=== PATIENT | male | born 1955 | race Caucasian/White ===

== ENCOUNTER → 2019-11-10 08:38 | Outpatient (CLI) | payer OTHER, SELFPAY ==
[2019-11-10 10:26] LABS: BUN Creatinine Ratio 15.6 (6-22); Blood Urea Nitrogen 14 mg/dL (9-20); Estimated Glomerular Filt Rate > 60.0 mL/min (>60)
== END ==
PROVIDERS: PCP Family Medicine; Referring Provider Specialist; Visit Provider Specialist
DX: Z01.818 Encounter for other preprocedural examination (principal)
CPT/HCPCS: 36415; 82565; 84520

== ENCOUNTER → 2019-11-12 12:09 | Outpatient (CLI) | payer OTHER, SELFPAY ==
--- NOTE | 2019-11-12 12:11 | DI.CT.S_ITS ---
PROCEDURE: CT PELVIS W CON INDICATIONS: Chronic pain in left inguinal hernia region post repair TECHNIQUE: After the administration of oral contrast and intravenous contrast, 5 mm thick sections acquired from the iliac crests to the symphysis. 5 mm thick coronal and sagittal reformats were acquired. For radiation dose reduction, the following was used: automated exposure control, adjustment of mA and/or kV according to patient size. COMPARISON: None. FINDINGS: Image quality: Excellent. Peritoneum and bowel: Contrast enhanced bowel loops demonstrate normal wall thickness and caliber. No free fluid or air. Note is made of asymmetric bowel within the lower pelvis anteriorly with greater large and small bowel loops on the right than the left. Low left inguinal canal internal os shows characteristic soft tissue change of herniorrhaphy, best seen centered on series 2, image 27. No recurrent hernia in this area is identified. Genitourinary: Bladder wall thickness is normal. Nodes and vessels: No iliac, pelvic, or inguinal adenopathy. Iliac vessels demonstrate normal size and enhancement. Bones: No suspicious bony lesions. Miscellaneous: No inguinal hernias. IMPRESSION: Expected postoperative change of left herniorrhaphy with asymmetric presence of large and small bowel loops in the right hemipelvis than in the left anteriorly. There is no sign of internal hernia, or bowel inflammation or mass lesion in this region. Dictated by: Pete Yates M.D. on 11/12/2019 at 15:43 Approved by: Pete Yates M.D. on 11/12/2019 at 15:53
== END ==
PROVIDERS: PCP Family Medicine; Referring Provider Specialist; Visit Provider Specialist
DX: R10.32 Left lower quadrant pain (principal); M79.2 Neuralgia and neuritis, unspecified; G89.29 Other chronic pain; Z98.890 Other specified postprocedural states
CPT/HCPCS: 72193

== ENCOUNTER 2021-02-22 14:40 | Emergency (ER) | payer OTHER, SELFPAY ==
[2021-02-22 14:39] VITALS: BP 158/87; PULSE 77; RESP 20; TEMP 36.6; O2SAT 97
--- NOTE | 2021-02-22 14:51 | DI.CT.S_ITS ---
PROCEDURE: CT KIDNEY URETER BLADDER (KUB) INDICATIONS: left flank pain TECHNIQUE: Axial sections were acquired from the lung bases to the pubic symphysis. Coronal and sagittal reformats were performed. For radiation dose reduction, the following was used: automated exposure control, adjustment of mA and/or kV according to patient size. COMPARISON: [facility], CT, CT PELVIS W CON, 11/12/2019, 13:22. FINDINGS: Image quality: Excellent. Lung bases: There is minimal dependent atelectasis. There are postsurgical changes at the gastroesophageal junction. Heart: No significant findings. URINARY: Right Kidney: No stones or hydronephrosis. Right Ureter: No hydroureter. Left Kidney: There is a punctate nonobstructing stone within the left kidney. No hydronephrosis. Left Ureter: No hydroureter. Bladder: The urinary bladder is partially distended but there is suggestion of mild concentric wall thickening. No calcified bladder stones. There is heterogeneous enlargement of the prostate. ABDOMEN: Liver: Unremarkable. Gallbladder: Multiple calcified gallstones are demonstrated in the gallbladder fundus. No associated gallbladder wall thickening or pericholecystic fat stranding. Biliary ducts: Unremarkable. Pancreas: Unremarkable. Spleen: Unremarkable. Adrenal Glands: Unremarkable. Stomach and Bowel: Stomach, small bowel loops, and colon are normal in caliber and wall thickness. No evidence of appendicitis. There is colonic diverticulosis without acute diverticulitis. Peritoneum: No abnormal intraperitoneal fluid. No free air. Ventral Wall: No hernia. Abdominal Nodes: No enlarged retroperitoneal or mesenteric lymph nodes. Vessels: Aorta and inferior vena cava are normal in size. PELVIS: Pelvic Organs: Unremarkable. Pelvic Nodes: Unremarkable. Miscellaneous: There is soft tissue fullness in the left inguinal fossa redemonstrated consistent with sequelae of prior inguinal hernia repair. No evidence of recurrent inguinal hernias. Bones: There is moderate multilevel degenerative disc disease throughout the lumbar spine. IMPRESSION: 1. Punctate nonobstructing left renal stone. No evidence of obstructive uropathy. 2. Colonic diverticulosis without acute diverticulitis. 3. Mild concentric bladder wall thickening. The findings may reflect a cystitis or possible sequelae of bladder outlet obstruction secondary to enlargement of the prostate. 4. Soft tissue fullness redemonstrated in the left inguinal fossa likely related to prior inguinal hernia repair. No evidence of recurrent hernia. Dictated by: David Echevarria M.D. on 02/22/2021 at 14:18 Approved by: David Echevarria M.D. on 02/22/2021 at 14:22
[2021-02-22 15:02] LABS: Add Manual Diff / Slide Review NO; Basophils Absolute Auto 100 /uL (0-100); Basophils Percent Auto 0.5 % (0-2); Eosinophils Absolute Auto 0 /uL (0-450); Eosinophils Percent Auto 0.3 % (2-4); Hematocrit 39.7 % (41-53); Hemoglobin 13.7 g/dL (13.5-17.5); Lymphocytes Absolute Auto 1700 /uL (1100-4500); Lymphocytes Percent Auto 14.9 % (25-40); Mean Corpuscular HGB Conc 34.5 % (30-36); Mean Corpuscular Hemoglobin 32.1 PG (26-34); Monocytes Absolute Auto 800 /uL (0-900); Neutrophils Absolute Auto 9000 /uL (1500-7000); Neutrophils Percent Auto 77.3 % (50-75); Platelet Count 287 X10^3/uL (150-400); Red Blood Cell Count 4.26 X10^6/uL (4.5-5.9); Red Cell Distribution Width 13.1 % (11.6-14.8); White Blood Cell Count 11.6 X10^3/uL (4.5-11.0)
[2021-02-22] MEDS: SODIUM CHLORIDE 0.9% 1,000 ML 1000 ML IV (15:06)
[2021-02-22 15:07] LABS: Alanine Aminotransferase 11 IU/L (<50); Albumin 4.3 g/dL (3.5-5.0); Albumin Globulin Ratio 1.7 (1.0-2.8); Alkaline Phosphatase 82 U/L (38-126); Aspartate Aminotransferase 18 IU/L (17-59); BUN Creatinine Ratio 21.6 (6-22); Bilirubin Total 0.7 mg/dL (0.2-1.3); Blood Urea Nitrogen 19 mg/dL (9-20); Calcium 9.1 mg/dL (8.4-10.2); Carbon Dioxide 27 mmol/L (22-32); Chloride 104 mmol/L (98-107); Estimated Glomerular Filt Rate > 60.0 mL/min (>60); Globulin 2.5 g/dL (1.7-4.1); Glucose 109 mg/dL (80-110); HEMOLYSIS < 15 (0-50); Sodium 135 mmol/L (137-145); Total Protein 6.8 g/dL (6.3-8.2)
[2021-02-22] MEDS: KETOROLAC 30 MG/ML VIAL 15 MG IV (15:07)
--- NOTE | 2021-02-22 15:30 | ED_ITS ---
HPI - General Adult General Chief complaint: Urogenital-Male Stated complaint: Possible Kidney Stones Time Seen by Provider: 02/22/21 14:42 History of Present Illness HPI narrative: 65-year-old gentleman with a history of BPH and prior kidney stones requiring lithotripsy. 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 He presents with left-sided flank pain for the last 24 hours that is getting worse. It is radiating into the left lower quadrant and down into his testicle and feels like similar kidney stones. He currently is having frequency but no dysuria when he does void. He describes no fevers, cough, chills. Has not been having any constipation or diarrhea. He has been nauseated but has not actually vomited. He describes no headache, palpitations, chest pain or dyspnea. Related Data Home Medications Medication Instructions Recorded Confirmed tamsulosin 0.4 mg capsule 0.4 mg PO DAILY 10/10/19 11/15/19 Previous Rx's Medication Instructions Recorded gabapentin 300 mg capsule 300 mg PO TID #90 cap 10/24/19 amitriptyline 10 mg tablet See Rx Instructions .ROUTE 11/08/19 .COMPLEX #30 tab hydrocodone 5 mg-acetaminophen 325 1 tab PO Q6HR PRN #10 tab 02/22/21 mg tablet Allergies Allergy/AdvReac Type Severity Reaction Status Date / Time No Known Drug Allergies Allergy Unverified 11/15/19 13:17 Review of Systems Review of Systems Narrative: Remainder of complete review of systems is otherwise unremarkable except for that included in the HPI. Patient History Medical History (Updated 02/22/21 @ 15:46 by Katiuska Loja MD) History of stomach ulcers Nephrolithiasis Surgical History Status post left inguinal hernia repair Family History Mother Cancer Social History marital status: unknown household members: friend(s) occupational status: employed Smoking Status: Never smoker alcohol intake: current substance use type: marijuana Smoking Status: Never smoker Exam Narrative Exam Narrative: General: Healthy appearing, in pain but Able to give a complete and coherent history. Well-nourished well-developed HEENT: Moist mucous membranes, normal sclera with reactive pupils, Neck: No JVD, supple Respiratory: Lungs are clear to auscultation, no wheezing no rales no rhonchi. Full and symmetrical air movement Cardiac: Regular rate and rhythm no murmurs no bruits Abdomen: Soft, nontender, good bowel tones, left flank pain Skin: Warm and dry, no rashes Neurologic: Grossly neurologically intact with no obvious asymmetries or abnormalities Extremities: No trauma, well perfused Psych: Cooperative, appropriate insight and affect Initial Vital Signs Initial Vital Signs: Vital Signs Temperature 98 F 02/22/21 14:39 Pulse Rate 77 02/22/21 14:39 Respiratory Rate 20 02/22/21 14:39 Blood Pressure 158/87 H 02/22/21 14:39 Pulse Oximetry 97 02/22/21 14:39 Course Orders Ordered: ED Orders 02/22/21 14:51 CT kidney ureter bladder (KUB) Stat 02/22/21 14:55 Complete Blood Count AUTO DIFF Stat Comprehensive Metabolic Panel Stat 02/22/21 15:14 Urinalysis and Microscopic Stat Hydromorphone HCl (Hydromorphone 0.5 Mg Inj) 0.5 mg IV Q15MIN PRN PRN Reason: Pain, Sodium Chloride (Normal Saline 0.9%) 1,000 mls @ 1,000 mls/hr IV BOLUS ONE Stop: 02/22/21 15:49 Last Admin: 02/22/21 15:06 Dose: 1,000 mls/hr Documented by: GERMAN Discontinued Medications Ketorolac Tromethamine (Ketorolac 30 Mg/Ml Vial) 15 mg IV NOW ONE Stop: 02/22/21 14:51 Last Admin: 02/22/21 15:07 Dose: 15 mg Documented by: GERMAN Vital Signs Vital signs: Vital Signs - 8 hr 02/22/21 14:39 Temperature 98 F Pulse Rate 77 Respiratory Rate 20 Blood Pressure 158/87 H Pulse Oximetry 97 Medical Decision Making Lab Data Result diagrams: 02/22/21 14:55 02/22/21 14:55 Labs: Lab Results 02/22/21 02/22/21 Range/Units 14:55 14:55 WBC 11.6 H (4.5-11.0) X10^3/uL RBC 4.26 L (4.5-5.9) X10^6/uL Hgb 13.7 (13.5-17.5) g/dL Hct 39.7 L (41-53) % MCV 93.0 (80-100) fL MCH 32.1 (26-34) PG MCHC 34.5 (30-36) % RDW 13.1 (11.6-14.8) % Plt Count 287 (150-400) X10^3/uL Neut % (Auto) 77.3 H (50-75) % Lymph % (Auto) 14.9 L (25-40) % [place] % (Auto) 7.0 (3-14) % Eos % (Auto) 0.3 L (2-4) % Baso % (Auto) 0.5 (0-2) % Neut # (Auto) 9000 H (8659-3547) /uL Lymph # (Auto) 1700 (8218-2015) /uL [place] # (Auto) 800 (0-900) /uL Eos # (Auto) 0 (0-450) /uL Baso # (Auto) 100 (0-100) /uL Sodium 135 L (137-145) mmol/L Potassium 4.0 (3.4-5.1) mmol/L Chloride 104 (98-107) mmol/L Carbon Dioxide 27 (22-32) mmol/L BUN 19 (9-20) mg/dL Creatinine 0.88 (0.66-1.25) mg/dL Estimated GFR > 60.0 (>60) mL/min BUN/Creatinine Ratio 21.6 (6-22) Glucose 109 (80-110) mg/dL Calcium 9.1 (8.4-10.2) mg/dL Total Bilirubin 0.7 (0.2-1.3) mg/dL AST 18 (17-59) IU/L ALT 11 (<50) IU/L Alkaline Phosphatase 82 (38-126) U/L Total Protein 6.8 (6.3-8.2) g/dL Albumin 4.3 (3.5-5.0) g/dL Globulin 2.5 (1.7-4.1) g/dL Albumin/Globulin Ratio 1.7 (1.0-2.8) Imaging Data CT scan - abdomen/pelvis: Radiologist's Impression: FINDINGS:? Image quality:? Excellent.? ? Lung bases:? There is minimal dependent atelectasis.? There are postsurgical changes at the gastroesophageal junction.? Heart:? No significant findings. ? URINARY: Right Kidney: ? No stones or hydronephrosis.? Right Ureter:? No hydroureter.? ? Left Kidney:? There is a punctate nonobstructing stone within the left kidney.? No hydronephrosis. Left Ureter:? No hydroureter.? ? Bladder:? The urinary bladder is partially distended but there is suggestion of mild concentric wall thickening.? No calcified bladder stones.? There is heterogeneous enlargement of the prostate. ? ABDOMEN: Liver:? Unremarkable.? ? Gallbladder:? Multiple calcified gallstones are demonstrated in the gallbladder fundus.? No associated gallbladder wall thickening or pericholecystic fat stranding. Biliary ducts:? Unremarkable.? ? Pancreas:? Unremarkable.? ? Spleen:? Unremarkable.? ? Adrenal Glands:? Unremarkable.? ? ? Stomach and Bowel:? Stomach, small bowel loops, and colon are normal in caliber and wall thickness.? No evidence of appendicitis.? There is colonic diverticulosis without acute diverticulitis. Peritoneum:? No abnormal intraperitoneal fluid.? No free air.? ? Ventral Wall: ? No hernia.? Abdominal Nodes:? No enlarged retroperitoneal or mesenteric lymph nodes.? Vessels:? Aorta and inferior vena cava are normal in size.? ? PELVIS: Pelvic Organs:? Unremarkable.? ? Pelvic Nodes: Unremarkable. Miscellaneous:? There is soft tissue fullness in the left inguinal fossa redemonstrated consistent with sequelae of prior inguinal hernia repair.? No evidence of recurrent inguinal hernias. ? Bones:? There is moderate multilevel degenerative disc disease throughout the lumbar spine. ? IMPRESSION:? ? 1. Punctate nonobstructing left renal stone.? No evidence of obstructive uropathy. ? 2. Colonic diverticulosis without acute diverticulitis. ? 3. Mild concentric bladder wall thickening.? The findings may reflect a cystitis or possible sequelae of bladder outlet obstruction secondary to enlargement of the prostate. ? 4. Soft tissue fullness redemonstrated in the left inguinal fossa likely related to prior inguinal hernia repair.? No evidence of recurrent hernia.? ? ? Dictated by: David Echevarria M.D. on 02/22/2021 at 14:18? ?? MDM Narrative Medical decision making narrative: 65-year-old gentleman with 24 hours of left flank pain the setting of prior kidney stones. Does report severe pain with a flush of nausea and heat as he was straining on the toilet it was this episode that caused him to call 911. CT scan does not show a kidney stone or any hydronephrosis. There is no evidence of appendicitis or diverticulitis. No other significant abnormalities suggested of alternate diagnoses on CT scan. Labs are equally reassuring. He is significantly improved after Toradol in the emergency department. At this point I suspect that he had a stone and passed it with that significant parasympathetic flush just prior to calling the ambulance. Will have him continue with his Flomax as previously prescribed. Will give him 10 Percocet to have at home should he have recurrent pain and have him continue to use ibuprofen and Tylenol as needed. He will follow-up with his primary care physician and return to the ER if symptoms worsen. Safe for home discharge Discharge Plan Departure Patient Disposition: Home Clinical Impression: Left flank pain Instructions: DI for Kidney Stones Activity Restrictions/Additional Instructions: Thank you for coming in today Your lab work is very reassuring. There is no evidence of infection and there is no obvious kidney stone seen on the CT scan currently. With your description of symptoms I am wondering if you actually had a stone and passed it with those severe symptoms appreciated just prior to calling 911. You do have a mild amount of stool however it is all on the right side of your colon and that should explain left-sided flank pain. I would encourage you to use stool softeners as you did take narcotics yesterday and were given additional narcotics today. Using 400 mg of ibuprofen (2 [id number] pills) and 1 Tylenol every 6 hours can be very helpful in controlling pain. For severe pain you can use 400 mg of ibuprofen and 1 Percocet. Please continue all other medications as prescribed If you have worsening symptoms, please return to the ER. Prescriptions: New hydrocodone-acetaminophen 5-325 mg tablet 1 tab PO Q6HR PRN (Reason: pain) Qty: 10 0RF No Action amitriptyline 10 mg tablet See Rx Instructions .ROUTE .COMPLEX Qty: 30 2RF Dose Instruction: TAKE 1 TABLET BY MOUTH AT BEDTIME FOR GROIN PAIN. Rx Instructions: TAKE 1 TABLET BY MOUTH AT BEDTIME FOR GROIN PAIN. tamsulosin 0.4 mg capsule 0.4 mg PO DAILY 0RF gabapentin 300 mg capsule 300 mg PO TID Qty: 90 1RF Referrals: Ky Vega MD [Primary Care Provider] -
[2021-02-22 15:39] LABS: Appearance Urine UA CLEAR; Bilirubin Urine UA NEGATIVE (NEGATIVE); Color Urine UA YELLOW; Glucose Urine UA TRACE g/dL (Negative); Ketones Urine UA TRACE (NEGATIVE); Leukocyte Esterase Urine UA NEGATIVE (NEGATIVE); Nitrite Urine UA NEGATIVE (Negative); Occult Blood Urine UA TRACE-INTACT (Negative); Protein Urine UA TRACE (Negative); Specific Gravity Urine UA 1.025 (1.000-1.035); Urobilinogen Urine UA 0.2 E.U./dL (0.2); pH Urine UA 5.5 (4.5-8.0)
[2021-02-22] MEDS: HYDROMORPHONE 0.5 MG INJ IV (15:47)
[2021-02-22 15:49] LABS: Bacteria Urine Occasional (0-1); Calcium Oxalate Crystals Urine Few; RBC Urine 0-1/HPF (0-5/HPF); Squamous Epithelial Cell Urine 0-1 /HPF (0-5/HPF); WBC Urine 1-5/HPF (0-5/HPF)
[2021-02-22 15:50] LABS: Culture Indicated Urine Cult Not Indicated; Mucus Urine 1+ (Negative)
[2021-02-22 16:17] VITALS: BP 144/78; PULSE 69; RESP 20; TEMP 36.6; O2SAT 98
== END 2021-02-22 16:19 | disposition home or self-care (01) ==
PROVIDERS: Emergency Provider Emergency Medicine; PCP Family Medicine
DX: R10.32 Left lower quadrant pain (principal); R11.0 Nausea; Z87.442 Personal history of urinary calculi
CPT/HCPCS: 36415; 74176; 80053; 81001; 85025; 96361; 96374; 99284; J1170; J1885

== ENCOUNTER → 2021-06-25 10:07 | Outpatient (CLI) | payer OTHER, SELFPAY ==
--- NOTE | 2021-06-25 10:10 | DI.RAD.S_ITS ---
PROCEDURE: XR KUB INDICATIONS: Kidney stones TECHNIQUE: One view of the abdomen acquired. COMPARISON: [facility], CT, CT KIDNEY URETER BLADDER (KUB), 02/22/2021, 15:00. [facility], CR, XR ABDOMEN 1 VIEW, 07/03/2018, 10:05. FINDINGS: Surgical changes and devices: None. Bowel: Nonspecific bowel gas pattern. Calcifications overlying the left pelvis, which may reflect phleboliths. Soft tissues: No suspicious abdominal calcifications. Visualized solid organ contours appear normal in size. Bones: No suspicious bony lesions. IMPRESSION: Nonobstructive bowel gas pattern. Dictated by: Rashaad Castro M.D. on 06/25/2021 at 11:38 Approved by: Rashaad Castro M.D. on 06/25/2021 at 11:39
== END ==
PROVIDERS: Referring Provider Urology; Visit Provider Urology
DX: N20.0 Calculus of kidney (principal); R97.20 Elevated prostate specific antigen [PSA]; R39.9 Unspecified symptoms and signs involving the genitourinary system; R35.1 Nocturia; R35.0 Frequency of micturition; R39.15 Urgency of urination; Z77.22 Contact with and (suspected) exposure to environmental tobacco smoke (acute) (chronic)
CPT/HCPCS: 51798; 74018; 81002; 99215

== ENCOUNTER → 2021-07-01 10:46 | Outpatient (CLI) | payer OTHER, SELFPAY ==
[2021-07-02 09:08] LABS: PSA Free % 14.1 % (.); PSA, Total 9.6 ng/mL (0.0-4.0)
== END ==
PROVIDERS: Referring Provider Urology; Visit Provider Urology
DX: R97.20 Elevated prostate specific antigen [PSA] (principal)
CPT/HCPCS: 36415; 84153; 84154

== ENCOUNTER → 2021-08-08 08:57 | Outpatient (CLI) | payer OTHER, SELFPAY ==
[2021-08-09 12:31] LABS: PSA Free % 13.6 % (.); PSA, Total 10.3 ng/mL (0.0-4.0)
== END ==
PROVIDERS: Referring Provider Urology; Visit Provider Urology
DX: R97.20 Elevated prostate specific antigen [PSA] (principal)
CPT/HCPCS: 36415; 84153; 84154

== ENCOUNTER → 2021-09-03 08:57 | Outpatient (CLI) | payer OTHER, SELFPAY ==
[2021-09-03 10:30] LABS: Prostate Specific Antigen 7.17 ng/mL (0.10-4.00)
== END ==
PROVIDERS: Referring Provider Urology; Visit Provider Urology
DX: R97.20 Elevated prostate specific antigen [PSA] (principal)
CPT/HCPCS: 36415; 84153

== ENCOUNTER → 2021-09-08 08:24 | Outpatient (CLI) | payer OTHER, SELFPAY ==
[2021-09-09 07:39] LABS: PSA Free % 15.7 % (.); PSA, Total 7.7 ng/mL (0.0-4.0)
== END ==
PROVIDERS: Referring Provider Urology; Visit Provider Urology
DX: R97.20 Elevated prostate specific antigen [PSA] (principal)
CPT/HCPCS: 36415; 84153; 84154